=== PATIENT | female | born 1945 | race Caucasian/White ===

== ENCOUNTER → 2017-04-01 | Outpatient (CLI) | payer MEDICARE ==
[~2017-04-01] MED LIST: K-DUR20 ME2 DOB; PHENERGAN25 MG PO
--- NOTE | ~2017-04-01 | MY11 ---
[facility] A Service of [facility] & [facility] RADIOLOGY TEXT RESULTS PATIENT: MARKO CELESTE LOCATION: [facility] : 47 UNIT #: [id number] AGE: [address]: Lynn Stewart APRN SEX: F ORDER DR: [id number] [address] [id number] O MR#: [id number] Acc #: [id number] NAME: MARKO CELESTE : 1945 SEX: F STUDY DATE/TIME: 04/01/2017 11:43 UNIT: [facility] ROOM: STUDY DESCRIPTION: MY Mammogram Screening Dig Ruben Attending Physician: Lynn Stewart A.P.R.N. Referring Physician: Lynn Stewart A.P.R.N. Ordering Physician: Lynn Stewart A.P.R.N. Primary Care Physician: Sobia Garcia M.D. MEDICAL IMAGING REPORT This report is preliminary unless electronic signature is present. EXAM Digital screening mammogram, 04/01/2017, [facility]. HISTORY 72-year-old woman previous right lumpectomy and adjuvant radiation therapy 5 years ago. Annual screen. COMPARISON STUDIES Outside mammograms from [facility] now available, 02/14/2014, 02/15/2015, 03/05/2016. TECHNIQUE Digital imaging of each breast was completed utilizing screening protocol. Review includes FDA-approved CAD device. FINDINGS Breast parenchyma is partially fatty replaced and heterogeneous. Postsurgical deformity of the right breast is again noted with significant retraction of the nipple-areolar complex. Vascular clips are stable in the lumpectomy bed. Focal parenchymal opacity projecting just lateral to the lumpectomy bed is stable. Image-guided biopsy marker centrally located left breast is stable. I see no interval occurring mass. There are no suspicious microcalcifications and no interval occurring architectural distortion. IMPRESSION Benign mammogram. Stable considerable distortion postsurgically right breast. Annual screening recommended. Patients over the age of 40 are entered into a reminder system with target due date for the next mammogram. A result letter will also be sent to the patient. [facility] A Service of [facility] & [facility] RADIOLOGY TEXT RESULTS PATIENT: MARKO CELESTE LOCATION: [facility] #: [id number] : [birth year] UNIT #: [id number] AGE: [address]: Lynn Stewart APRN SEX: F ORDER DR: GOLDYADS: 2 Benign findings. Dictated by... Maximus Zaragoza M.D. THIS IS AN ELECTRONICALLY VERIFIED REPORT Maximus Zaragoza M.D. at 04/02/2017 8:02 AM MANAN/omi TD: 04/01/2017 18:41 JOB #: [id number] MEDICAL IMAGING REPORT Page 1 of 1
== END | disposition home or self-care (01) ==
LOC: SMAM 10:30
DX: Z12.31 Encounter for screening mammogram for malignant neoplasm of breast (principal); Z98.890 Other specified postprocedural states; Z92.3 Personal history of irradiation
CPT/HCPCS: G0202